=== PATIENT | female | born 1980 | race Caucasian/White ===

== ENCOUNTER 2017-03-28 19:44 | Emergency (ER) | payer OTHER ==
[~2017-03-28] VITALS: Ht 157.5 cm; Wt 91.0 kg
[~2017-03-28 19:44] MED LIST: AMOXICILLIN500 MG PO; BENADRY2 EX; BENADRYL25 MG PO; FLEXERIL OR; FOLIC ACID1 MG PO; GABAPENTIN400 MG PO; LORTAB 5/3255 MG PO; LORTAB 7.57.5 MG PO; LORTAB5 PO; MINIPRESS1 MG PO; MINIPRESS2 MG PO; MOTRIN800 MG PO; NORCO1 TA1 PO; OMEGA 31000 MG PO; PHENERGAN25 MG/TAB PO; PRE-NATAL PO; PROZAC40 MG PO; ROBITUSSIN AC10 ML PO; TORADOL OR; TRAZODONE50 MG PO; ULTRAM50 M1 PO; WELLBUTRIN75 M1 OR; ZOLOFT50 MG PO; ZYRTEC5 M1 PO
[2017-03-28] MEDS ORDERED: ELAVIL25 MG PO (20:05)
[2017-03-28] MEDS ORDERED: CYMBALTA20 MG PO (20:05)
[2017-03-28] MEDS ORDERED: CYMBALTA60 MG PO (20:05)
[2017-03-28] MEDS ORDERED: SEROQUEL25 MG PO (20:07)
[2017-03-28] MEDS ORDERED: HYDROCHLOROT25 MG PO (20:08)
[2017-03-28 22:52] LABS: URINE BILIRUBIN - DIPSTICK NEGATIVE (NEGATIVE); URINE BLOOD DIPSTICK NEGATIVE (NEGATIVE); URINE CLARITY SLIGHT CLOUDY; URINE COLOR YELLOW; URINE GLUCOSE - DIPSTICK NEGATIVE (NEGATIVE); URINE KETONE TRACE mg/dL (NEGATIVE); URINE LEUK ESTERASE NEGATIVE (NEGATIVE); URINE NITRITE - DIPSTICK NEGATIVE (Negative); URINE PH 5.5 (4.5-8.0); URINE PROTEIN - DIPSTICK NEGATIVE (NEG-TRACE); URINE SPECIFIC GRAVITY >=1.030; URINE UROBILINOGEN - DIPSTICK 0.2 E.U./dL (0.2)
[2017-03-28 22:54] LABS: HEMOGLOBIN 12.7 g/dl (12.0-16.0); IMMATURE GRANULOCYTES 0.2 % (0.0-1.0); MEAN CELL VOLUME 89.2 fL CALC (80.0-100.0); MEAN CORPUSCULAR HGB 30.6 pG CALC (26.0-32.0); MEAN CORPUSCULAR HGB CONC 34.3 g/L CALC (32.0-36.0); NEUT# 3.74 thou/uL (2.00-7.15); RED BLOOD COUNT 4.15 mill/uL (4.20-5.60); RED CELL DISTRI WIDTH 13.2 % (11.5-15.5)
[2017-03-28 23:13] LABS: ALBUMIN 4.5 g/dL (3.2-5.0); ALKALINE PHOSPHATASE 61 u/l (38-126); AMYLASE 44 u/l (30-110); ANION GAP 15 (6-22 (CALC)); BILIRUBIN, TOTAL 0.4 mg/dL (0.0-1.4); BUN 12 mg/dL (7-17); BUN/CREATININE RATIO 13 (12-20 (CALC)); CALCIUM 9.8 mg/dL (8.4-10.2); CARBON DIOXIDE 24 mmol/l (22-30); CHLORIDE 103 mmol/l (95-108); CREATININE 0.9 mg/dL (0.5-1.0); GFR > 60 ML/MIN (>=60 (CALC)); GFR FOR AFR.AMER. > 60 ML/MIN (>=60 (CALC)); GLUCOSE 85 mg/dL (65-105); LIPASE 65 u/l (23-300); POTASSIUM 3.9 mmol/l (3.5-5.1); SGOT/AST 19 u/l (14-36); SGPT/ALT 33 u/l (9-52); SODIUM 138 mmol/l (137-146); TOTAL PROTEIN 7.5 g/dL (6.3-8.2)
[2017-03-29] MEDS ORDERED: ULTRAM50 M1 PO (01:05)
[2017-03-29 01:30] VITALS: BP 120/66
== END 2017-03-29 01:29 | disposition home or self-care (01) | DRG 392 ==
LOC: ED 19:44
PROVIDERS: Emergency Medicine
DX: R10.32 Left lower quadrant pain (principal); N83.202 Unspecified ovarian cyst, left side
CPT/HCPCS: Q9967

== ENCOUNTER 2017-08-05 09:40 | Emergency (ER) | payer OTHER ==
[~2017-08-05] VITALS: Ht 157.5 cm; Wt 90.0 kg
[~2017-08-05 09:40] MED LIST changes: +CYMBALTA20 MG PO; +CYMBALTA60 MG PO; +ELAVIL25 MG PO; +HYDROCHLOROT25 MG PO; +SEROQUEL25 MG PO
[2017-08-05] MEDS ORDERED: SEROQUEL100 MG PO (10:19)
[2017-08-05] MEDS ORDERED: LORTAB 1010 MG PO (10:36)
[2017-08-05] MEDS ORDERED: FLOXIN OTIC0.3 % OT (10:36)
[2017-08-05] MEDS ORDERED: AMOX/K CLAV875 M1 PO (10:36)
[2017-08-05 10:40] VITALS: BP 128/85
== END 2017-08-05 10:40 | disposition home or self-care (01) | DRG 153 ==
LOC: ED 09:40
DX: H66.91 Otitis media, unspecified, right ear (principal); F17.210 Nicotine dependence, cigarettes, uncomplicated

== ENCOUNTER 2018-08-24 18:06 | Emergency (ER) | payer MEDICAID ==
[~2018-08-24] VITALS: Ht 157.5 cm; Wt 97.0 kg
[~2018-08-24 18:06] MED LIST changes: +AMOX/K CLAV875 M1 PO; +FLOXIN OTIC0.3 % OT; +LORTAB 1010 MG PO; +SEROQUEL100 MG PO
[2018-08-24 20:26] LABS: HEMATOCRIT 35.3 % (37.0-47.0); HEMOGLOBIN 11.9 g/dl (12.0-16.0); IMMATURE GRANULOCYTES 0.3 % (0.0-5.0); MEAN CELL VOLUME 90.5 fL CALC (80.0-100.0); MEAN CORPUSCULAR HGB 30.5 pG CALC (26.0-32.0); MEAN CORPUSCULAR HGB CONC 33.7 g/L CALC (32.0-36.0); NEUT# 6.88 thou/uL (2.00-7.15); RED BLOOD COUNT 3.9 mill/uL (4.20-5.60)
[2018-08-24] MEDS ORDERED: PREDNISONE50 MG PO (20:57)
[2018-08-24] MEDS ORDERED: ROBITUSSIN AC10 ML PO (20:57)
[2018-08-24] MEDS ORDERED: HYDRALAZINE25 MG PO (21:05)
--- NOTE | 2018-08-24 21:07 | NUR ---
BREATHING TREATMENT GIVEN USING A MOUTH PEICE. BREATHING TECH. FOR GOOD DEPOSITION TO THE LUNGS.
[2018-08-24 21:59] VITALS: BP 131/81
[2018-08-25] MEDS ORDERED: PREDNISONE50 MG PO (09:20)
== END 2018-08-24 21:59 | disposition home or self-care (01) ==
LOC: ED 18:06
PROVIDERS: Family Medicine
DX: B34.9 Viral infection, unspecified (principal); F17.200 Nicotine dependence, unspecified, uncomplicated; R05 Cough; J02.9 Acute pharyngitis, unspecified